=== PATIENT | male | born 1940 | race Caucasian/White ===

== ENCOUNTER 2023-08-10 08:50 | Emergency (ER) | payer OTHER, BC ==
[~2023-08-10] VITALS: Ht 175.3 cm; Wt 90.7 kg
[2023-08-10 10:08] LABS: HEMATOCRIT 43.3 % (39.0-48.0); HEMOGLOBIN 14.3 g/dL (13-16.00); MEAN CELL VOLUME 87.8 fL (80.0-100.00); MEAN CORPUSCULAR HEMOGLOBIN 29.1 pg (27.00-32.0); MEAN CORPUSCULAR HGB CONC 33.1 g/dl (32.0-36.0); PLATELET COUNT 270 K/uL (150-450); RED BLOOD COUNT 4.93 M/uL (4.00-6.00); RED CELL DISTRIBUTION WIDTH 13.6 % (11.5-14.5)
[2023-08-10 10:20] LABS: ALBUMIN 3.5 gm/dL (3.4-5.0); BILIRUBIN TOTAL 0.29 mg/dL (0.3-1.2); CREATININE SERUM 1.53 mg/dL (0.70-1.30); GFR 43.58; GLOBULINA 3.8 G/DL (2.4-3.5); POTASSIUM 4.36 mEq/L (3.5-5.1); TOTAL PROTEIN 7.3 gm/dL (6.4-8.2)
== END 2023-08-10 12:50 | disposition home or self-care (01) ==
LOC: ER 08:50
PROVIDERS: General Practice
DX: K52.9 Noninfective gastroenteritis and colitis, unspecified (principal)
CPT/HCPCS: 36415; 74176; 96365; 99283; J3490; J7030